=== PATIENT | female | born 1945 | race Caucasian/White ===

== ENCOUNTER → 2023-08-16 12:05 | Outpatient (REF) | payer MEDICARE, OTHER, SELFPAY ==
[2023-08-16 14:10] LABS: % Basophils 0.5 % (0-2); % Immature Granulocytes 0.5 % (0-0.5); % Lymphocytes 19.3 % (20.5-51.1); % Monocytes 10.8 % (1.7-9.3); % Neutrophils 66.9 % (42.2-75.2); Absolute Eosinophils 0.1 10^3/uL (0-0.7); Absolute Lymphocytes 1.3 10^3/uL (1.2-3.4); Absolute Monocytes 0.7 10^3/uL (0.1-0.6); Absolute Neutrophils 4.4 10^3/uL (1.4-6.5); Mean Corp Hgb Conc. 34.1 g/dL (33.0-37.0); Mean Corpuscular Hgb 31.1 pg (27.0-31.0); Mean Corpuscular Volume 91.1 fL (81.0-99.0); Mean Platelet Volume 9.8 fL (7.4-10.4); Nucleated Red Blood Cells % 0 %; Platelet Count 196 10^3/uL (130-400); Red Cell Dist. Width 13.6 % (11.5-14.5); White Blood Cell Count 6.6 10^3/uL (4.8-10.8)
[2023-08-16 14:33] LABS: ALT (SGPT) 45 U/L (0-35); AST (SGOT) 61 U/L (14-36); Albumin 3.8 g/dl (3.5-5.0); Alkaline Phosphatase 44 U/L (38-126); Blood Urea Nitrogen 23 mg/dl (7-17); Calcium 9.7 mg/dl (8.4-10.2); Carbon Dioxide 31 mmol/L (22-30); Chloride 101 mmol/L (98-107); Glucose 77 mg/dl (70-99); Sodium 138 mmol/L (135-145); Total Bilirubin 0.4 mg/dl (0.2-1.3); eGFR 57.66
== END ==
LOC: REG 12:05
PROVIDERS: ATTENDING PHYSICIAN Internal Medicine Rheumatology; FAMILY PHYSICIAN Family Medicine; REFERRING PHYSICIAN Dermatology
DX: E55.9 Vitamin D deficiency, unspecified (principal); L50.1 Idiopathic urticaria; M16.12 Unilateral primary osteoarthritis, left hip; M25.511 Pain in right shoulder; M51.36 Other intervertebral disc degeneration, lumbar region; M65.331 Trigger finger, right middle finger
CPT/HCPCS: 36415; 80053; 85025

== ENCOUNTER → 2024-01-08 12:39 | Outpatient (REF) | payer MEDICARE, OTHER, SELFPAY | LOC: RAD 12:39 | PROVIDERS: ATTENDING PHYSICIAN Physician Assistant; FAMILY PHYSICIAN Family Medicine | DX: M81.0 Age-related osteoporosis without current pathological fracture (principal) | CPT/HCPCS: 77080 ==

== ENCOUNTER → 2024-02-21 12:26 | Outpatient (REF) | payer MEDICARE, OTHER, SELFPAY ==
[2024-02-21 14:24] LABS: ALT (SGPT) 36 U/L (0-35); AST (SGOT) 56 U/L (14-36); Albumin 4.2 g/dl (3.5-5.0); Alkaline Phosphatase 50 U/L (38-126); Blood Urea Nitrogen 18 mg/dl (7-17); Calcium 10.1 mg/dl (8.4-10.2); Carbon Dioxide 31 mmol/L (22-30); Chloride 102 mmol/L (98-107); Glucose 87 mg/dl (70-99); Potassium 4.5 mmol/L (3.5-5.1); Sodium 142 mmol/L (135-145); Total Bilirubin 0.4 mg/dl (0.2-1.3); Total Protein 6.2 g/dl (6.3-8.2); eGFR 51.43
[2024-02-21 14:40] LABS: Vitamin D, 25-OH*** 65.2 ng/mL (30-80)
== END ==
LOC: REG 12:26
PROVIDERS: ATTENDING PHYSICIAN Physician Assistant; FAMILY PHYSICIAN Family Medicine; REFERRING PHYSICIAN Dermatology
DX: M81.0 Age-related osteoporosis without current pathological fracture (principal); Z51.81 Encounter for therapeutic drug level monitoring
CPT/HCPCS: 36415; 80053; 82306

== ENCOUNTER → 2024-04-02 06:22 | Day surgery (SDC) | payer MEDICARE, OTHER, SELFPAY | LOC: GI 06:22 | PROVIDERS: ATTENDING PHYSICIAN Student in an Organized Health Care Education/Training Program; FAMILY PHYSICIAN Family Medicine | DX: Z12.11 Encounter for screening for malignant neoplasm of colon (principal); R19.5 Other fecal abnormalities; K57.30 Diverticulosis of large intestine without perforation or abscess without bleeding; K64.0 First degree hemorrhoids; D12.1 Benign neoplasm of appendix; D12.2 Benign neoplasm of ascending colon; K51.40 Inflammatory polyps of colon without complications; R12 Heartburn; K44.9 Diaphragmatic hernia without obstruction or gangrene; K22.89 Other specified disease of esophagus; K22.70 Barrett's esophagus without dysplasia; K31.89 Other diseases of stomach and duodenum; I89.0 Lymphedema, not elsewhere classified; K29.50 Unspecified chronic gastritis without bleeding | CPT/HCPCS: 45385; 43239; 88305; 88342 ==

== ENCOUNTER → 2024-04-10 13:16 | Outpatient (REF) | payer MEDICARE, OTHER, SELFPAY | LOC: RCS 13:16 | PROVIDERS: ATTENDING PHYSICIAN Specialist; FAMILY PHYSICIAN Family Medicine; OTHER PHYSICIAN Internal Medicine Rheumatology; REFERRING PHYSICIAN Dermatology | DX: H27.122 Anterior dislocation of lens, left eye (principal) | CPT/HCPCS: 93005 ==

== ENCOUNTER → 2024-04-20 16:11 | Outpatient (REF) | payer MEDICARE, OTHER, SELFPAY | LOC: RAD 16:11 | PROVIDERS: ATTENDING PHYSICIAN Physician Assistant; FAMILY PHYSICIAN Family Medicine | DX: M25.559 Pain in unspecified hip (principal); M54.16 Radiculopathy, lumbar region | CPT/HCPCS: 72100; 72220; 73523 ==

== ENCOUNTER → 2024-04-28 13:43 | Outpatient (REF) | payer MEDICARE, OTHER, SELFPAY | LOC: WDC 13:43 | PROVIDERS: ATTENDING PHYSICIAN Obstetrics & Gynecology | DX: Z12.31 Encounter for screening mammogram for malignant neoplasm of breast (principal) | CPT/HCPCS: 77063; 77067 ==

== ENCOUNTER → 2024-08-19 13:13 | Outpatient (REF) | payer MEDICARE, OTHER, SELFPAY ==
[2024-08-19 14:49] LABS: % Basophils 0.3 % (0-2); % Eosinophils 2.2 % (0-6); % Immature Granulocytes 0.3 % (0-0.5); % Lymphocytes 19.2 % (20.5-51.1); % Monocytes 10.4 % (1.7-9.3); % Neutrophils 67.6 % (42.2-75.2); Absolute Eosinophils 0.1 10^3/uL (0-0.7); Absolute Lymphocytes 1.1 10^3/uL (1.2-3.4); Absolute Monocytes 0.6 10^3/uL (0.1-0.6); Hematocrit 42.1 % (37.0-47.0); Hemoglobin 13.9 g/dL (12.0-16.0); Mean Corpuscular Hgb 31.2 pg (27.0-31.0); Mean Corpuscular Volume 94.4 fL (81.0-99.0); Mean Platelet Volume 10.2 fL (7.4-10.4); Nucleated Red Blood Cells % 0 %; Platelet Count 199 10^3/uL (130-400); Red Blood Cell Count 4.46 10^6/uL (4.20-5.40); Red Cell Dist. Width 13.5 % (11.5-14.5); White Blood Cell Count 5.9 10^3/uL (4.8-10.8)
[2024-08-19 15:47] LABS: ALT (SGPT) 34 U/L (0-35); AST (SGOT) 52 U/L (14-36); Albumin 4.4 g/dl (3.5-5.0); Alkaline Phosphatase 58 U/L (38-126); Blood Urea Nitrogen 24 mg/dl (7-17); Calcium 10.5 mg/dl (8.4-10.2); Carbon Dioxide 29 mmol/L (22-30); Chloride 99 mmol/L (98-107); Glucose 82 mg/dl (70-99); Potassium 4.5 mmol/L (3.5-5.1); Sodium 138 mmol/L (135-145); Total Bilirubin 0.6 mg/dl (0.2-1.3); Total Protein 6.2 g/dl (6.3-8.2); eGFR 46.05
== END ==
LOC: REG 13:13
PROVIDERS: ATTENDING PHYSICIAN Internal Medicine Rheumatology; FAMILY PHYSICIAN Family Medicine; REFERRING PHYSICIAN Dermatology
DX: M79.7 Fibromyalgia (principal); M81.0 Age-related osteoporosis without current pathological fracture
CPT/HCPCS: 36415; 80053; 85025

== ENCOUNTER → 2024-09-22 10:47 | Outpatient (REF) | payer MEDICARE, OTHER, SELFPAY | LOC: RAD 10:47 | PROVIDERS: ATTENDING PHYSICIAN Student in an Organized Health Care Education/Training Program; FAMILY PHYSICIAN Family Medicine; OTHER PHYSICIAN Internal Medicine Rheumatology; REFERRING PHYSICIAN Dermatology | DX: R74.01 Elevation of levels of liver transaminase levels (principal) | CPT/HCPCS: 76700 ==

== ENCOUNTER → 2024-12-16 11:56 | Outpatient (REF) | payer MEDICARE, OTHER, SELFPAY | LOC: PAVMRI 11:56 | PROVIDERS: ATTENDING PHYSICIAN Student in an Organized Health Care Education/Training Program; FAMILY PHYSICIAN Family Medicine | DX: K76.89 Other specified diseases of liver (principal); R93.89 Abnormal findings on diagnostic imaging of other specified body structures; R79.89 Other specified abnormal findings of blood chemistry | CPT/HCPCS: 74183; A9575 ==

== ENCOUNTER → 2024-12-16 13:37 | Outpatient (REF) | payer MEDICARE, OTHER, SELFPAY | LOC: RAD 13:37 | PROVIDERS: ATTENDING PHYSICIAN Family Medicine; OTHER PHYSICIAN Dermatology; OTHER PHYSICIAN Internal Medicine Rheumatology; OTHER PHYSICIAN Student in an Organized Health Care Education/Training Program | DX: J37.0 Chronic laryngitis (principal) | CPT/HCPCS: 71046 ==

== ENCOUNTER → 2024-12-31 20:45 | Outpatient (REF) | payer MEDICARE, OTHER, SELFPAY | LOC: MRI 3T 20:45 | PROVIDERS: ATTENDING PHYSICIAN Internal Medicine Rheumatology; FAMILY PHYSICIAN Family Medicine | DX: M54.16 Radiculopathy, lumbar region (principal); M53.3 Sacrococcygeal disorders, not elsewhere classified; M54.50 Low back pain, unspecified | CPT/HCPCS: 72148 ==

== ENCOUNTER → 2025-01-28 16:20 | Outpatient (REF) | payer MEDICARE, OTHER, SELFPAY | LOC: RAD 16:20 | PROVIDERS: ATTENDING PHYSICIAN Internal Medicine Rheumatology; FAMILY PHYSICIAN Family Medicine | DX: M25.511 Pain in right shoulder (principal); M25.512 Pain in left shoulder | CPT/HCPCS: 73030 ==